=== PATIENT | female | born 1975 | race American Indian/Alaskan Native ===

== ENCOUNTER 2021-05-10 09:24 | Observation (INO) | payer OTHER ==
[2021-05-10] MEDS ORDERED: ACETAMINOPHEN 325 MG TAB PO PRN (10:03)
[2021-05-10] MEDS ORDERED: DOCUSATE SODIUM 100 MG CAP PO PRN (10:03)
[2021-05-10 12:43] VITALS: BP 128/72
--- NOTE | 2021-05-10 14:30 | History and Physical Report ---
History of Present Illness Date of examination: 05/10/21 Date of admission: 05/10/21 10:23 Chief complaint: "I was told to come in" History of present illness: Patient is a presenting for further evaluation of ectopic versus blighted ovum and corpus luteum. Voices no complaints. Notes she had an episode of vaginal bleeding two days ago and has had only occasional spotting since. Denies abdominal pain or cramping. Past History Past Medical History: other (fibroids) Past Surgical History: D&C, myomectomy, other (LEEP) [employer] MEM[employer] History: abnormal PAP smear Family/Genetic History: heart disease, cancer Social history: single - Obstetrical History : 4 Para: 0 Hx # Term Pregnancies: 0 Number of Pregnancies: 0 Spontaneous Abortions: 3 Induced : 0 Number of Living Children: 0 Medications and Allergies Allergies Allergy/AdvReac Type Severity Reaction Status Date / Time No Known Allergies Allergy Unverified 05/10/21 11:38 Active Meds: Active Medications Acetaminophen (Acetaminophen 325 Mg Tab) 650 mg PO Q4H PRN PRN Reason: Pain MILD(1-3)/Fever >100.5/[place] Docusate Sodium (Docusate Sodium 100 Mg Cap) 100 mg PO Q12H PRN PRN Reason: Constipation Methotrexate (Methotrexate 50 Mg/2 Ml Inj) 98.5 mg IM ONCE NR Stop: 05/10/21 15:00 Review of Systems All systems: negative Genitourinary: vaginal bleeding - Vital Signs Vital signs: Vital Signs Temp Pulse Resp BP Pulse Ox 98.2 F 81 20 128/72 100 05/10/21 12:13 05/10/21 12:13 05/10/21 12:13 05/10/21 12:13 05/10/21 12:13 Temp Pulse Resp BP Pulse Ox 98.2 F 81 20 128/72 100 05/10/21 12:13 05/10/21 12:13 05/10/21 12:13 05/10/21 12:13 05/10/21 12:13 - Physical Exam Cardiovascular: Regular rate, Normal S1, Normal S2 Lungs: Positive: Clear to auscultation Abdomen: Positive: normal appearance, soft, normal bowel sounds. Negative: distention, tenderness Extremities: Results Result Diagrams: 05/10/21 13:49 05/10/21 13:49 All other labs normal. Assessment and Plan - Patient Problems (1) Encounter for assessment for suspected ectopic Current Visit: Yes Status: Acute Plan to address problem: Patient with previous workup. U/S noted gestational sac with corpus luteal cyst vs ectopic . HCG x2 and noted to be falling, noting abnormal . Patient previously counseled on methotrexate vs dx lap and D&C. At this time patient declines surgicl intervention. Will order repeat U/S HCG, CBCB, CMP ordered Pending results will administer methotrexate. Follow up reviewed with patient with first hcg follow up due in 72 hours
[2021-05-10 14:52] LABS: Alanine Aminotransferase 14 units/L (7-56); Albumin 4.1 g/dL (3.9-5); Blood Urea Nitrogen 9 mg/dL (7-17); Calcium 8.3 mg/dL (8.4-10.2); Hemolysis Index 9
[2021-05-10 15:00] LABS: Basophils # (Auto) 0.1 K/mm3 (0.0-0.1); Basophils % (Auto) 0.4 % (0.0-1.8); Eosinophils # (Auto) 0.1 K/mm3 (0.0-0.4); Eosinophils % (Auto) 1.2 % (0.0-4.3); Hematocrit 30.4 % (30.3-42.9); Hemoglobin 10.5 gm/dl (10.1-14.3); Lymphocytes # (Auto) 1.7 K/mm3 (1.2-5.4); Lymphocytes % (Auto) 13.6 % (13.4-35.0); Mean Corpuscular HGB Conc 35 % (30-34); Mean Corpuscular Volume 89 fl (79-97); Monocytes # (Auto) 0.8 K/mm3 (0.0-0.8); Monocytes % (Auto) 6.9 % (0.0-7.3); Platelet Count 412 K/mm3 (140-440); Red Cell Distribution Width 18.6 % (13.2-15.2)
[2021-05-10 15:43] LABS: BUN/Creatinine Ratio 18
--- NOTE | 2021-05-10 16:10 | Ultrasound Report ---
ULTRASOUND OBSTETRIC INDICATION / CLINICAL INFORMATION: f/u for corpus luteum cyst vs ectopic . TECHNIQUE: Transabdominal and Transvaginal. COMPARISON: None available. FINDINGS: UTERUS: Endometrial thickening measuring 1.8 cm without uterine gestational sac identified. GESTATIONAL SAC: Not visualized YOLK SAC: Not visualized EMBRYO/FETUS: Nonvisualized ADNEXA: Within the left ovary, there are 2 distinct cystic masses. One which measures 1.1 x 1.0 x 1.5 cm and the other which measures 0.9 x 0.7 x 0.9 cm. There is a small amount of free fluid adjacent t o the left ovary. However, no significant inflammatory stranding or increased vascularity (i.E. "Ring of fire") appearance of the cystic lesions. FREE FLUID: None. ADDITIONAL FINDINGS: None. IMPRESSION: No sonographic evidence of intrauterine . There are 2 distinct cystic lesions which appear t o be within the left ovary as opposed to adjacent to the left ovary as detailed above. These are of i ndeterminate clinical significance but could represent luteal cyst. Left ovarian ectopic although fel t less likely is not excluded. Correlation with patient clinical status, serial beta hCG levels and c ontinued short-term sonographic follow-up ultrasound is recommended. Signer Name: Nnamdi Benavidez MD Signed: 05/10/2021 4:06 PM Workstation Name: [id number]
--- NOTE | 2021-05-10 16:46 | Event Note ---
Date: 05/10/21 Patient results reviewed/ U/S notes while ectopic less likely, cannot completely ruled out, less likely. Quant today 3313. No GS on U/S. Previously quants 6198 (05/06) and 8407 (05/09) with GS noted on previous ultrasound. All discussed with patient. At this time patient elects not to have methotrexate therapy. Risks reviewed with patient. Will discharge at this time with return precautions reviewed. To follow up in office on Wednesday.
--- NOTE | 2021-05-10 16:55 | Discharge Summary ---
Providers - Providers Date of Admission: 05/10/21 10:23 Date of discharge: 05/10/21 Attending physician: SHAMA MARMOLEJO MD Primary care physician: SHAAM MARMOLEJO MD Hospitalization Condition: Stable Disposition: 01 HOME / SELF CARE / HOMELESS Final Discharge Diagnosis (Prints w/discharge instructions): miscarriage Time spent for discharge: 30 minutes - Discharge Diagnoses (1) Encounter for assessment for suspected ectopic Status: Acute Core Measure Documentation - Palliative Care Palliative Care/ Comfort Measures: Not Applicable - Core Measures Any of the following diagnoses?: none Exam - Constitutional Vitals: Temp Pulse Resp BP Pulse Ox 98.2 F 81 20 128/72 100 05/10/21 12:13 05/10/21 12:13 05/10/21 12:13 05/10/21 12:13 05/10/21 12:13 Plan Activity: other (pelvic rest x 4 weeks) Weight Bearing Status: Full Weight Bearing Diet: regular Plan of Treatment: Call your doctor immediately for: * Fever > 100.5 * Heavy vaginal bleeding ( >2 pad per hour) * Severe abdominal pain or cramping * Lightheadeness, dizziness Follow up with: SHAMA MARMOLEJO MD [Primary Care Provider] - 48 Hours (To see Dr. Sharma for scheduled appointment on Wednesday. )
== END 2021-05-10 17:10 | disposition home or self-care (01) ==
LOC: 3A 09:24 → UNDOADMOB 09:24 → OB 10:23
PROVIDERS: ADMIT Student in an Organized Health Care Education/Training Program; ATTEND Student in an Organized Health Care Education/Training Program
DX: O26.851 Spotting complicating pregnancy, first trimester (principal); Z3A.00 Weeks of gestation of pregnancy not specified; Z79.899 Other long term (current) drug therapy; Z98.890 Other specified postprocedural states
CPT/HCPCS: 36415; 76801; 76817; 80053; 84702; 85025; 86850; 86900; 86901; G0378; G0379